=== PATIENT | male | born 1960 | race Two or more races ===

== ENCOUNTER 2018-05-11 10:44 | Emergency (ER) | payer OTHER ==
[2018-05-11 10:55] VITALS: BP 123/81
--- NOTE | 2018-05-11 11:34 | EDPHY ---
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 He did not twist his ankle or fall. He states that it hurt much more than he would have expected. He was sent in for evaluation. He denies other injuries. He is able to walk on his ankle but certain motions cause pain. REVIEW OF SYSTEMS: Negative except per HPI. General Appearance: Alert, no distress. Eyes: Pupils equal and round no icterus Respiratory: No respiratory distress Neurological: Awake, alert, no focal deficits. Skin: Warm and dry, no rashes. Musculoskeletal: Neck is supple nontender. Left ankle with swelling around lateral malleolus. Normal range of motion. Distal intact. Extremities are symmetrical, full range of motion, no edema. Psychiatric: Patient is oriented X 3, there is no agitation. Medical/surgical history: Noncontributory Social history: Nonsmoker Smoking Status: Never smoked Constitutional: Initial Vital Signs Temperature (C) 36.6 C 05/11/18 10:50 Heart Rate 73 05/11/18 10:50 Respiratory Rate 18 05/11/18 10:50 Blood Pressure 123/81 H 05/11/18 10:50 O2 Sat (%) 96 05/11/18 10:50 O2 Delivery Mode Room Air Allergies/Adverse Reactions: No Known Allergies Allergy (Unverified 05/11/18 10:58) Home Medications: Medication Instructions Recorded Aleve 05/11/18 Medical Decision Making - Diagnostics Imaging Results: Left ankle x-ray shows no fracture, dislocation. Soft tissue swelling noted. Imaging: I viewed and interpreted images myself Differential Diagnosis: Differential diagnosis includes but is not limited to ankle fracture, ankle sprain, contusion. After evaluation likely contusion with some soft tissue swelling but no evidence of fracture or other significant musculoskeletal injury. Given Sergo wrap for comfort. Discussed ice, elevation, activity. Stable for discharge. Departure - Departure Clinical Impression: Contusion of ankle, left Qualifiers: Encounter type: initial encounter Qualified Code(s): S90.02XA - Contusion of left ankle, initial encounter Condition: Good Instructions: Foot Contusion (ED) Additional Instructions: Sergo wrap, ice and elevation as discussed. Ibuprofen or Tylenol will help with pain as well. You may develop some bruising over the next few days. Activity as tolerated, no work restrictions. Referrals: NONE *PRIMARY CARE P,. [Primary Care Provider] - As per Instructions
== END 2018-05-11 11:45 | disposition home or self-care (01) ==
LOC: CED 10:44
DX: S90.02XA Contusion of left ankle, initial encounter (principal); W22.8XXA Striking against or struck by other objects, initial encounter; Y92.39 Other specified sports and athletic area as the place of occurrence of the external cause; Y99.0 Civilian activity done for income or pay; Y93.89 Activity, other specified
CPT/HCPCS: 73610-PO